=== PATIENT | female | born 1985 | race Caucasian/White ===

== ENCOUNTER 2018-10-11 16:14 | Emergency (ER) | payer OTHER, MEDICAID ==
[2018-10-11] MEDS: KETOROLAC 30 MG INJ IM (17:50)
== END 2018-10-11 19:17 | disposition home or self-care (01) ==
LOC: FTE 16:14
DX: S92.424A Nondisplaced fracture of distal phalanx of right great toe, initial encounter for closed fracture (principal); W20.8XXA Other cause of strike by thrown, projected or falling object, initial encounter; Y92.9 Unspecified place or not applicable
CPT/HCPCS: 73630; 81025; 96372; 99284-25